=== PATIENT | male | born 1955 | race Caucasian/White ===

== ENCOUNTER 2020-07-10 10:40 | Emergency (ER) | payer BC ==
[2020-07-10 11:05] VITALS: BP 156/74; PULSE 108
[2020-07-10] MEDS ORDERED: Sodium Chloride 0.9% 10 ML Syringe FLUSH PRN ×2 (11:25→12:52)
[2020-07-10] MEDS ORDERED: Sodium Chloride 0.9% 1,000 ML IV SCH (11:30)
--- NOTE | 2020-07-10 11:48 | EDM.PDOC ---
ED HPI GENERAL MEDICAL PROBLEM - General Chief Complaint: Respiratory Problem Stated Complaint: COVID SX 11 DAYS Time Seen by Provider: 07/10/20 11:05 Source of Information: Reports: Patient History Limitations: Reports: No Limitations, Other (ED vital signs reveal a temp of 96.8 however his skin does feel hot to touch and he is diaphoretic so tympanic thermometer is likely not accurate, pulse of 108, respiratory rate of 20, blood pressure 156/74, pulse ox 95% on room air) - History of Present Illness INITIAL COMMENTS - FREE TEXT/NARRATIVE: 64-year-old male presents the emergency department today with complaints of fever, body aches, shortness of breath with cough, loss of taste and smell, headache, decreased appetite, diarrhea and nausea. Patient states symptoms started about 11 days ago when he developed fever and body aches. He states his had similar symptoms and tested positive for Covid 8 days ago. He states he did not have the Covid vaccine. Presented to the ER today has he states that his seems to be getting better and he is not. Past medical history includes hypertension. He states his primary care physician is Radha Cerda. Denies smoking history. He is obese. Generalized Pain Score (Numeric/FACES): 7 - Related Data Allergies Allergy/AdvReac Type Severity Reaction Status Date / Time No Known Allergies Allergy Verified 07/10/20 11:05 Home Meds: Home Meds Losartan [Cozaar] 100 mg PO DAILY 07/10/20 [History] dexAMETHasone [Dexamethasone] 6 mg PO DAILY #14 tablet 07/10/20 [Rx] hydroCHLOROthiazide [Hydrochlorothiazide] 25 mg PO DAILY 07/10/20 [History] Past Medical History HEENT History: Reports: Other (See Below) Other HEENT History: wears glasses Cardiovascular History: Reports: Hypertension Social & Family History - Tobacco Use Tobacco Use Status *Q: Current Some Day Tobacco User Years of Tobacco use: 5 Packs/Tins Daily: 0.1 - Caffeine Use Caffeine Use: Reports: Coffee - Recreational Drug Use Recreational Drug Use: No ED ROS GENERAL - Review of Systems Review Of Systems: Comprehensive ROS is negative, except as noted in HPI. ED EXAM, GENERAL - Physical Exam Exam: See Below Exam Limited By: No Limitations General Appearance: Alert, WD/WN, No Apparent Distress Ears: Normal External Exam, Hearing Grossly Normal Nose: Normal Inspection Throat/Mouth: Normal Inspection, Normal Lips, Normal Voice, No Airway Compromise Head: Atraumatic Neck: Normal Inspection, Supple Respiratory/Chest: No Respiratory Distress, Lungs Clear, Normal Breath Sounds, No Accessory Muscle Use, Chest Non-Tender Cardiovascular: Normal Peripheral Pulses, No Edema, No Murmur, Tachycardia Peripheral Pulses: 2+: Radial (L), Radial (R) GI/Abdominal: Normal Bowel Sounds, Soft, Non-Tender, No Distention (Male) Exam: Deferred Rectal (Males) Exam: Deferred Back Exam: Normal Inspection Extremities: Normal Inspection, No Pedal Edema, Normal Capillary Refill Neurological: Alert, Oriented, Normal Cognition Psychiatric: Normal Affect, Normal Mood Skin Exam: Warm, Intact, Normal Color, No Rash, Diaphoretic, Other (Patient's cheeks are flushed as he does appear febrile) #1 Interpretation EKG Date: 07/10/20 Time: 11:34 Rhythm: NSR Rate (Beats/Min): 101 [place]: Normal P-Wave: Present QRS: Normal ST-T: Normal QT: Normal EKG Interpretation Comments: Per Dr. Sparks interpretation: Sinus tachycardia at 100 bpm; early R wave transition [id number] right ventricular hypertrophy versus septal hypertrophy; diffuse early repolarization pattern; consider left atrial hypertrophy Course - Vital Signs Text/Narrative:: Patient presents with 11-day history of fever, body aches, decreased appetite, nonproductive cough, nausea, headache and diarrhea. Patient reports his tested positive for Covid 8 days ago and their symptoms started around the same time. He states his is getting better and he just feels like he is not. States that he did have a fever again last evening and he took Tylenol for which he states does effectively reduce his fever and headache. Likely does have covid. However he likely does not qualify for monoclonal antibodies as he is on day 11, and his O2 saturations are 95 to 96% on room air. He is likely dehydrated due to the diarrhea and decreased appetite. I have ordered normal saline at 150 mL's per hour, labs, Covid swab, EKG and a chest x-ray. I have also ordered Tylenol 650 mg for this patient as his skin is hot to touch and he is slightly tachycardic. He is not septic in appearance. Last Recorded V/S: Last Vital Signs Temp 96.8 F L 07/10/20 10:56 Pulse 108 H 07/10/20 10:56 Resp 20 07/10/20 10:56 BP 156/74 H 07/10/20 10:56 Pulse Ox 95 07/10/20 10:56 - Orders/Labs/Meds Orders: Active Orders 24 hr Category Date Time Status EKG Documentation Completion [RC] STAT Care 07/10/20 11:24 Active FERRITIN [CHEM] Routine Lab 07/10/20 11:25 Received Loperamide [Imodium] Med 07/10/20 14:08 Once 2 mg PO ONETIME ONE Sodium Chloride 0.9% [Normal Saline] 1,000 ml Med 07/10/20 11:30 Active IV ASDIRECTED Sodium Chloride 0.9% [Saline Flush] Med 07/10/20 11:25 Active 10 ml FLUSH ASDIRECTED PRN Sodium Chloride 0.9% [Saline Flush] Med 07/10/20 12:52 Active 10 ml FLUSH ONETIME PRN dexAMETHasone Med 07/10/20 14:08 Once 6 mg PO ONETIME ONE Isolation [COMM] Stat Oth 07/10/20 11:24 Ordered Saline Lock Insert [OM.PC] Stat Oth 07/10/20 11:25 Ordered Medication Orders Sodium Chloride (Normal Saline) 1,000 mls @ 150 mls/hr IV ASDIRECTED ZOE Last Admin: 07/10/20 11:44 Dose: 150 mls/hr Documented by: JOCELIN Sodium Chloride (Sodium Chloride 0.9% 10 Ml Syringe) 10 ml FLUSH ASDIRECTED PRN PRN Reason: Keep Vein Open Last Admin: 07/10/20 11:44 Dose: 10 ml Documented by: JOCELIN Sodium Chloride (Sodium Chloride 0.9% 10 Ml Syringe) 10 ml FLUSH ONETIME PRN PRN Reason: IV FLUSH Last Admin: 07/10/20 13:57 Dose: 10 ml Documented by: Labs: Laboratory Tests 07/10/20 07/10/20 07/10/20 Range/Units 11:03 11:25 11:25 WBC 7.11 (4.23-9.07) K/mm3 RBC 4.71 (4.63-6.08) M/mm3 Hgb 14.7 (13.7-17.5) gm/dl Hct 42.0 (40.1-51.0) % MCV 89.2 (79.0-92.2) fl MCH 31.2 (25.7-32.2) pg MCHC 35.0 (32.2-35.5) g/dl RDW Std Deviation 42.6 (35.1-43.9) fL Plt Count 242 (163-337) K/mm3 MPV 9.1 L (9.4-12.3) fl Neut % (Auto) 82.3 H (34.0-67.9) % Lymph % (Auto) 10.5 L (21.8-53.1) % Bowie % (Auto) 6.6 (5.3-12.2) % Eos % (Auto) 0 L (0.8-7.0) Baso % (Auto) 0.3 (0.1-1.2) % Neut # (Auto) 5.85 H (1.78-5.38) K/mm3 Lymph # (Auto) 0.75 L (1.32-3.57) K/mm3 Bowie # (Auto) 0.47 (0.30-0.82) K/mm3 Eos # (Auto) 0.00 L (0.04-0.54) K/mm3 Baso # (Auto) 0.02 (0.01-0.08) K/mm3 Manual Slide Review Normal smear PT 10.9 (9.7-12.0) SECONDS INR 1.02 APTT 33.5 H (21.7-31.4) SECONDS D-Dimer, Quantitative (0.19-0.50) mg/L Sodium (136-145) mEq/L Potassium (3.5-5.1) mEq/L Chloride (98-107) mEq/L Carbon Dioxide (21-32) mEq/L Anion Gap (5-15) BUN (7-18) mg/dL Creatinine (0.7-1.3) mg/dL Est Cr Clr Drug Dosing mL/min Estimated GFR (MDRD) (>60) mL/min BUN/Creatinine Ratio (14-18) Glucose (70-99) mg/dL Lactic Acid (0.4-2.0) mmol/L Calcium (8.5-10.1) mg/dL Magnesium (1.8-2.4) mg/dL Total Bilirubin (0.2-1.0) mg/dL AST (15-37) U/L ALT (16-63) U/L Alkaline Phosphatase (46-116) U/L Lactate Dehydrogenase (85-227) U/L C-Reactive Protein (<1.0) mg/dL Total Protein (6.4-8.2) g/dl Albumin (3.4-5.0) g/dl Globulin gm/dL Albumin/Globulin Ratio (1-2) SARS-CoV-2 RNA (BLANE) Positive H (NEGATIVE) 07/10/20 07/10/20 07/10/20 Range/Units 11:25 11:25 11:54 WBC (4.23-9.07) K/mm3 RBC (4.63-6.08) M/mm3 Hgb (13.7-17.5) gm/dl Hct (40.1-51.0) % MCV (79.0-92.2) fl MCH (25.7-32.2) pg MCHC (32.2-35.5) g/dl RDW Std Deviation (35.1-43.9) fL Plt Count (163-337) K/mm3 MPV (9.4-12.3) fl Neut % (Auto) (34.0-67.9) % Lymph % (Auto) (21.8-53.1) % [place]ie % (Auto) (5.3-12.2) % Eos % (Auto) (0.8-7.0) Baso % (Auto) (0.1-1.2) % Neut # (Auto) (1.78-5.38) K/mm3 Lymph # (Auto) (1.32-3.57) K/mm3 [place] # (Auto) (0.30-0.82) K/mm3 Eos # (Auto) (0.04-0.54) K/mm3 Baso # (Auto) (0.01-0.08) K/mm3 Manual Slide Review PT (9.7-12.0) SECONDS INR APTT (21.7-31.4) SECONDS D-Dimer, Quantitative 0.47 (0.19-0.50) mg/L Sodium 128 L (136-145) mEq/L Potassium 3.4 L (3.5-5.1) mEq/L Chloride 93 L (98-107) mEq/L Carbon Dioxide 23 (21-32) mEq/L Anion Gap 15.4 H (5-15) BUN 20 H (7-18) mg/dL Creatinine 1.3 (0.7-1.3) mg/dL Est Cr Clr Drug Dosing 65.87 mL/min Estimated GFR (MDRD) 55 (>60) mL/min BUN/Creatinine Ratio 15.4 (14-18) Glucose 115 H (70-99) mg/dL Lactic Acid 1.0 (0.4-2.0) mmol/L Calcium 8.2 L (8.5-10.1) mg/dL Magnesium 2.0 (1.8-2.4) mg/dL Total Bilirubin 0.5 (0.2-1.0) mg/dL AST 52 H (15-37) U/L ALT 51 (16-63) U/L Alkaline Phosphatase 57 (46-116) U/L Lactate Dehydrogenase 238 H (85-227) U/L C-Reactive Protein 21.2 H* (<1.0) mg/dL Total Protein 7.4 (6.4-8.2) g/dl Albumin 3.0 L (3.4-5.0) g/dl Globulin 4.4 gm/dL Albumin/Globulin Ratio 0.7 L (1-2) SARS-CoV-2 RNA (BLANE) (NEGATIVE) Meds: Medications Generic Name Dose Route Start Last Admin Trade Name Freq PRN Reason Stop Dose Admin Sodium Chloride 1,000 mls @ 150 mls/hr 07/10/20 11:30 07/10/20 11:44 Normal Saline IV 150 mls/hr ASDIRECTED ZOE Administration Sodium Chloride 10 ml 07/10/20 11:25 07/10/20 11:44 Sodium Chloride 0.9% 10 Ml Syringe FLUSH 10 ml ASDIRECTED PRN Administration Keep Vein Open Sodium Chloride 10 ml 07/10/20 12:52 07/10/20 13:57 Sodium Chloride 0.9% 10 Ml Syringe FLUSH 10 ml ONETIME PRN Administration IV FLUSH Discontinued Medications Generic Name Dose Route Start Last Admin Trade Name Freq PRN Reason Stop Dose Admin Acetaminophen 650 mg 07/10/20 11:50 07/10/20 11:58 Acetaminophen 325 Mg Tab PO 07/10/20 11:51 650 mg NOW ONE Administration Iopamidol 100 ml 07/10/20 12:52 07/10/20 13:57 Iopamidol 612 Mg/Ml 100 Ml Bottle IVPUSH 07/10/20 12:53 100 ml ONETIME ONE Administration - Re-Assessments/Exams Free Text/Narrative Re-Assessment/Exam: 07/10/20 12:54 Radiologist interpretation portable view of the chest: 1. Density along both sides of the chest, worse on the left side. Findings most likely represent prominent pleural thickening. Contrast enhanced chest CT is recommended to further evaluate. 2. Nothing acute is otherwise seen on portable chest x-ray. I have ordered a CT scan of the chest to further evaluate prominent pleural thickening. 07/10/20 13:19 Hematology reveals a WBC of 7.11, hemoglobin 14.7, hematocrit 42.0, platelet count 242, coagulation reveals a pro time of 10.9, INR of 1.02, PTT 33.5, D- dimer 0.47, chemistry reveals a sodium of 128, potassium 3.4, chloride 93, anion gap 15.4, BUN 20, creatinine 1.3, glucose 115, lactic acid 1.0, calcium 8.2, magnesium 2.0, total bilirubin 0.5, AST 52, ALT 51, LDH 238, C-reactive protein 21.2, patient is Covid positive, ferritin is pending. 07/10/20 13:[address] of the chest: 1. Mild pleural thickening not as prominent as noted on prior chest x-ray. This pleural thickening has a benign appearance. 2. Patchy groundglass appearance throughout both sides of the chest in multiple locations. This is suspicious for diffuse pneumonia, please rule out Covid disease as an etiology. Patient is likely through the worst part of Covid disease, he should begin feeling better over the course of the next few days. Although chest x-ray does show pneumonia, it is likely viral as the patient's white count is not elevated. Will discharge him to home with a short course of dexamethasone steroid which should likely help him. As stated before patient is out of the window for treatment of monoclonal antibodies. Pt will be discharged once his IV fluids are infused. Departure - Departure Time of Disposition: 14:10 Disposition: Home, Self-Care 01 Condition: Good Clinical Impression: COVID-19 - Discharge Information Prescriptions: dexAMETHasone [Dexamethasone] 6 mg PO DAILY #14 tablet Instructions: 10 Things You Can Do to Manage Your COVID-19 Symptoms at Home - CDC, Prevent the Spread of COVID-19 if You Are Sick - CDC, COVID-19: Quarantine vs. Isolation - [facility] Referrals: Xi Cerda NP [Primary Care Provider] - Forms: ED Department Discharge Additional Instructions: You were seen in the emergency department today with complaints of Covid symptoms. Labs, chest x-ray, CT scan and EKG were all completed. Your lab work is consistent with Covid infection however your white blood cell count was not elevated. Your CT scan does show pneumonia however I do believe this is viral so antibiotics will not help this. You are on the tail end of Covid so over the course of the next feel days, you should start feeling better. You may take Imodium antidiarrheal medication for your diarrhea. Take it per label instructions. I have sent a prescription to your pharmacy for dexamethasone, a steroid, you will take 6 mg daily which is equal to 1-1/2 tabs for 9 days. You were given your first dose today in the emergency department so you can start taking this medication tomorrow. Continue to take Tylenol 650 mg every 4 hours as needed for fever or generalized body aches. Drink plenty of fluids such as Gatorade or Powerade to keep your electrolytes within normal range. I also recommend you start drinking 1-2 protein shakes a day to be assured that you are meeting your protein needs to heal from the illness. Should your condition worsen or change, do not hesitate returning to the emergency department. Sepsis Event Note (ED) - Evaluation Sepsis Screening Result: Possible Sepsis Risk - Focused Exam Vital Signs: Vital Signs Temp Pulse Resp BP Pulse Ox 07/10/20 10:56 96.8 F L 108 H 20 156/74 H 95 - My Orders Last 24 Hours: My Active Orders 07/10/20 11:24 EKG Documentation Completion [RC] STAT Isolation [COMM] Stat 07/10/20 11:25 FERRITIN [CHEM] Routine Sodium Chloride 0.9% [Saline Flush] 10 ml FLUSH ASDIRECTED PRN Saline Lock Insert [OM.PC] Stat 07/10/20 11:30 Sodium Chloride 0.9% [Normal Saline] 1,000 ml IV ASDIRECTED 07/10/20 12:52 Sodium Chloride 0.9% [Saline Flush] 10 ml FLUSH ONETIME PRN 07/10/20 14:08 Loperamide [Imodium] 2 mg PO ONETIME ONE dexAMETHasone 6 mg PO ONETIME ONE - Assessment/Plan Last 24 Hours: My Active Orders 07/10/20 11:24 EKG Documentation Completion [RC] STAT Isolation [COMM] Stat 07/10/20 11:25 FERRITIN [CHEM] Routine Sodium Chloride 0.9% [Saline Flush] 10 ml FLUSH ASDIRECTED PRN Saline Lock Insert [OM.PC] Stat 07/10/20 11:30 Sodium Chloride 0.9% [Normal Saline] 1,000 ml IV ASDIRECTED 07/10/20 12:52 Sodium Chloride 0.9% [Saline Flush] 10 ml FLUSH ONETIME PRN 07/10/20 14:08 Loperamide [Imodium] 2 mg PO ONETIME ONE dexAMETHasone 6 mg PO ONETIME ONE
[2020-07-10] MEDS ORDERED: Acetaminophen 325 MG Tab PO ONE (11:50)
--- NOTE | 2020-07-10 12:47 | CR ---
Chest: Portable view of the chest was obtained. Comparison: No previous study. There is increased density along the lateral left chest. Lesser density is noted along the lateral right chest. Heart size and mediastinum are normal. Lungs show no acute parenchymal change. Impression: 1. Density along both sides of the chest, worse on the left side. Findings most likely represent prominent pleural thickening. Contrast enhanced chest CT is recommended to further evaluate. 2. Nothing acute is otherwise seen on portable chest x-ray. Diagnostic code #3
[2020-07-10] MEDS ORDERED: Iopamidol 612 MG/ML 100 ML Bottle IVPUSH ONE (12:52)
--- NOTE | 2020-07-10 13:44 | CT ---
CT chest Technique: Multiple axial sections through the chest were obtained. Intravenous contrast was utilized. Multiple reconstructions and coronal images were obtained. Comparison: Prior plain film study performed on the same day (11:27 AM). Findings: Mild pleural thickening is seen within the left and right sides of the chest. This is not as prominent as seen on plain film study. This is most likely chronic. Numerous parenchymal densities are seen on both sides of the chest which have mostly a groundglass appearance. Findings are suspicious for diffuse pneumonia. Please rule out Covid disease. No pleural effusions are seen. Bone window settings were reviewed which show nothing acute. Impression: 1. Mild pleural thickening not as prominent as noted on prior chest x-ray. This pleural thickening has a benign appearance. 2. Patchy groundglass appearance throughout both sides of the chest in multiple locations. This is suspicious for diffuse pneumonia, please rule out Covid disease as an etiology. Diagnostic code #3
[2020-07-10] MEDS ORDERED: Loperamide 2 MG Cap PO ONE (14:08)
[2020-07-10] MEDS ORDERED: Dexamethasone 4 MG Tab PO ONE (14:08)
== END 2020-07-10 14:40 | disposition home or self-care (01) ==
LOC: JD.ED 10:40
DX: U07.1 COVID-19 (principal); I10 Essential (primary) hypertension; Z79.899 Other long term (current) drug therapy; Z72.0 Tobacco use
CPT/HCPCS: 36415; 71045; 71260; 80053; 82728; 83605; 83615; 83735; 85025; 85379; 85610; 85730; 86140; 87635; 93005; 99284; A9270; J7030; J8540; Q9967; 93010; U0002